=== PATIENT | male | born 1950 | race Caucasian/White ===

== ENCOUNTER 2021-06-14 07:44 | Emergency (ER) | payer MEDICARE, OTHER, SELFPAY ==
[2021-06-14 07:52] VITALS: BP 151/81; PULSE 82; RESP 19; TEMP 36.8; O2SAT 96; BMI 28.8
--- NOTE | 2021-06-14 08:03 | ED_ITS ---
HPI - Back Pain/Injury General: Chief Complaint: Back Pain/Injury Stated Complaint: LOWER BACK PAIN (4 DAYS) Time Seen by Provider: 06/14/21 07:48 History of Present Illness: HPI Narrative: Patient is a 71-year-old male comes to the ED with left lower back pain. Patient reports some mild back pain starting approximately 2 weeks ago. 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 He felt a sharp pain in his back and then had a 10 out of 10 pain for 2 days. Today patient still feels some pain in with left lumbar region. Rates the pain currently a 2 out of 10. This morning he noticed his urine was a little dark. Patient has a history of kidney stones. Denies any improving or worsening factors. Associated symptoms: Deny abdominal pain, chills, dysuria, fatigue, fever(s), hematuria, nausea or vomiting Review of Systems Const: Denies: fever(s), chills or fatigue Eyes: Denies: change in vision or eye discomfort ENMT: Denies: throat pain, odynophagia, nasal discharge or nasal congestion Card: Denies: chest pain, palpitations, edema, swelling of feet/ankles, dyspnea on exertion or orthopnea Resp: Denies: dyspnea, productive cough or non-productive cough GI: Denies: abdominal pain, nausea, vomiting, diarrhea, constipation or hematochezia : Denies: flank pain, difficulty urinating, dysuria or hematuria Musc: Reports: back pain; Denies: neck pain or extremity swelling Skin/Breast: Denies: rash or new lesions Neuro: Denies: headache(s), numbness in extremities or weakness in extremities PFSH ED PFSH: Medical History CAD (coronary artery disease) GERD (gastroesophageal reflux disease) History of [place] (myocardial infarction) Hyperlipidemia Hypertension Peripheral circulatory disorder associated with type 2 diabetes mellitus Surgical History Aortic valve replaced History of carotid angioplasty History of colonoscopy 2010 History of coronary artery bypass graft History of open heart surgery History of tonsillectomy History of umbilical hernia repair History of vasectomy Family History Father CAD (coronary artery disease) Diabetes Brother CAD (coronary artery disease) Diabetes Mother Cancer Other Hypertension Denies family history of Stroke Social History Smoking and tobacco status: never smoked Alcohol intake: never History of recent travel: No Physical Exam Const: COMMON NORMALS: no acute distress, patient oriented x3, healthy appearing and alert GENERAL APPEARANCE: cooperative and comfortable HENMT: COMMON NORMALS: normocephalic HEAD & SCALP: normocephalic MOUTH: Normal oral and palatal mucosa present THROAT: posterior oropharynx normal and uvula midline Eye: COMMON NORMALS: Equal, round and reactive pupils present PUPIL: Yes Equal, round and reactive pupils present Neck/C-Spine: COMMON NORMALS: supple GENERAL: Yes normal visual inspection Resp: COMMON NORMALS: normal respiratory effort, No retractions, No use of accessory muscles and clear to auscultation bilaterally AUSCULTATION: clear to auscultation bilaterally Cardio: COMMON NORMALS: regular rate, regular rhythm, S1 normal heart sound present, S2 normal heart sound present, No gallops present (Cardio), No clicks present (Cardio), No murmurs present (Cardio) and Peripheral pulses 2+ throughout RATE: regular rate RHYTHM: regular rhythm HEART SOUNDS: S1 normal heart sound present and S2 normal heart sound present PERIPHERAL PULSES: Peripheral pulses 2+ throughout GI: COMMON NORMALS: Normal to inspection, nondistended, normoactive bowel sounds present, Soft to palpation, non-tender and no masses PALPATION: Yes Soft to palpation : COMMON NORMALS: Yes no CVA tenderness BLADDER/KIDNEY EXAM: Yes no CVA tenderness Back/Pelvis: COMMON NORMALS: no CVA tenderness LUMBAR SPINE/LOWER BACK: Yes lumbar ROM normal, No pain with ROM, No lumbar spinal tenderness and No paraspinal muscle tenderness Extremity: COMMON NORMALS: normal to inspection Neuro: COMMON NORMALS: patient oriented x3 and moves all extremities SENSORIUM/ORIENTATION: Yes alert Skin: GENERAL SKIN EXAM: dry skin Course Vital Signs: Vital signs: Vital Signs Temperature 98.3 F 06/14/21 07:52 Pulse Rate 82 06/14/21 07:52 Respiratory Rate 19 H 06/14/21 07:52 Blood Pressure 151/81 06/14/21 07:52 Pulse Oximetry 96 06/14/21 07:52 MDM - Back Pain/Injury MDM Narrative: Medical decision making narrative: Patient is a 71-year-old male comes to the ED with left lower back pain. 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 Vitals are stable. Exam is benign. UA was clean and showed no signs of infection or blood. Patient was diagnosed with musculoskeletal back pain and discharged home with a muscle relaxer. Patient currently takes Tylenol to help with his pain and said that is good enough pain control for him. He was told to follow-up with his PCP in 7 to 10 days for reevaluation. Return to ED precautions given. Patient understood and agreed with plan. Lab Data: Attestation: I reviewed the patient's lab results. Labs: Lab Results 06/14/21 08:40 Urine Color Yellow (Yellow) Urine Appearance Clear (CLEAR) Urine pH 6.5 (5-7) Ur Specific Gravit y 1.010 (1.005-1.030) Urine Protein Neg (Negative) Urine Glucose (UA) Norm (Normal) Urine Ketones Negative (Negative) Urine Blood Neg (Negative) Urine Nitrate Negative (Negative) Urine Bilirubin Neg (Negative) Urine Urobilinogen Norm mg/dL mg/dL (Negative) Ur Leukocyte Tami ase Negative (Negative) Discharge Plan Discharge Patient Disposition: Home Clinical Impression: Musculoskeletal back pain Condition: Stable Prescriptions: New cyclobenzaprine 10 mg tablet 10 mg PO BID PRN (Reason: muscle spasm) Qty: 15 RF: 0 No Action gabapentin 100 mg capsule 100 mg PO DAILY RF: 0 rosuvastatin 40 mg tablet 40 mg PO DAILY RF: 0 clopidogrel 75 mg tablet 75 mg PO DAILY RF: 0 glipizide [Glucotrol] 10 mg tablet 10 mg PO DAILY RF: 0 diltiazem HCl [Tiadylt ER] 360 mg capsule,extended release 24 hr 360 mg PO DAILY RF: 0 valsartan 80 mg tablet 80 mg PO DAILY RF: 0 aspirin 81 mg tablet,delayed release (DR/EC) 81 mg PO DAILY RF: 0 albuterol (refill) 90 mcg/actuation aerosol inhalation RF: 0 budesonide-formoterol [Symbicort] 160-4.5 mcg/actuation HFA aerosol inhaler 2 puff inhalation BID RF: 0 ketoconazole 2 % shampoo 1 applic topical .2 x weekly Qty: 120 RF: 3 clobetasol 0.05 % solution 1 applic topical DAILY Qty: 50 RF: 2 Discharge Orders: Discharge ED (Routine); Ordered 06/14/21 Ordered By: Luis F Thomas Referrals: Keren Gomez DO [Primary Care Provider] - Discharge Diet: Regular Discharge Activity: Increase activity as tolerated Patient Instructions: Low Back Strain (ED), Musculoskeletal Pain (ED) Activity Restrictions/Additional Instructions: Follow-up with medical provider as directed in 7 to 10 days for reevaluation. Take medications as prescribed. Cyclobenzaprine is a muscle relaxer and can cause some drowsiness so take at night before going to bed. Take [id number] Tylenol for any pain. Return to the ER or your medical provider if condition worsens. Please read and understand discharge instructions. Thank you for choosing [facility] for your healthcare needs today. Please realize this is an emergency room and that we are providing you with a medical screening exam and this may not be complete and all inclusive of all the testing and or work up that you may need to determine your ailment or severity of your illness. It is very important that you follow up as instructed or that you return to the Emergency Department should you have concerns or if your condition changes or worsens in any way. Coding Level of Care Code ED Hatch Supervisor for Eileen Noel Exam Comprehensive
[2021-06-14 09:16] LABS: Add Urine Microscopic? NO; Charge for UA Resulting for Rev
[2021-06-14 09:47] LABS: Bilirubin Urine Neg (Negative); Blood Urine Neg (Negative); Glucose Urine UA Norm (Normal); Ketones Urine Negative (Negative); Leukocyte Esterase Urine Negative (Negative); Nitrate Urine Negative (Negative); Protein Urine Neg (Negative); Urine Appearance Clear (CLEAR); Urine Color Yellow (Yellow); Urobilinogen Urine Norm (Negative); pH Urine 6.5 (5-7)
== END 2021-06-14 10:06 | disposition home or self-care (01) ==
PROVIDERS: Emergency Provider Physician Assistant; PCP Family Medicine
DX: M54.89 Other dorsalgia (principal); Z79.02 Long term (current) use of antithrombotics/antiplatelets; Z79.82 Long term (current) use of aspirin; I25.10 Atherosclerotic heart disease of native coronary artery without angina pectoris; I25.2 Old myocardial infarction; E78.5 Hyperlipidemia, unspecified; I10 Essential (primary) hypertension; E11.9 Type 2 diabetes mellitus without complications; Z95.1 Presence of aortocoronary bypass graft
CPT/HCPCS: 81003; 99281

== ENCOUNTER 2021-11-13 17:40 | Emergency (ER) | payer MEDICARE, OTHER, SELFPAY ==
[2021-11-13 17:46] VITALS: BP 150/71; PULSE 78; RESP 16; TEMP 36.9; O2SAT 97; BMI 27.3
--- NOTE | 2021-11-13 18:42 | XRR_ITS ---
PROCEDURE INFORMATION: Exam: XR Chest Exam date and time: 11/13/2021 6:42 PM Age: 71 years old Clinical indication: Shortness of breath; Prior surgery; Surgery date: 6+ months; Surgery type: 3 open heart surgeries; Additional info: SOB TECHNIQUE: Imaging protocol: XR of the chest. Views: 1 view. COMPARISON: No relevant prior studies available. FINDINGS: Lungs: Unremarkable. No consolidation. Pleural spaces: Unremarkable. No pleural effusion. No pneumothorax. Heart/Mediastinum: Unremarkable. No cardiomegaly. Bones/joints: Sternotomy wires noted. Bilateral shoulder hemiarthroplasties noted. Visualized osseous structures are intact. XR/XR chest 1V portable [id number] IMPRESSION: No acute findings.
== END 2021-11-13 19:45 ==
PROVIDERS: Emergency Provider Family Medicine; PCP Family Medicine
DX: Z53.21 Procedure and treatment not carried out due to patient leaving prior to being seen by health care provider (principal)
CPT/HCPCS: 71045

== ENCOUNTER 2022-09-05 15:59 | Observation (INO) | payer MEDICARE, OTHER, SELFPAY ==
[2022-09-05] VITALS (37 sets, daily range): BP systolic 128–183; BP diastolic 67–88; PULSE 57–98; RESP 11–27; TEMP 37.1; O2SAT 89–100
--- NOTE | 2022-09-05 16:09 | ECG_ITS ---
[facility] Test Date: 2022-09-05 Pat Name: Kaz Rausch Department: Room: Gender: Male Membership Administrator: : 1950 Requested By: Derek Don Order Number: [id number] Rekha MD: Malka Pruett M.D. 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 [id number]
--- NOTE | 2022-09-05 16:10 | CTR_ITS ---
PROCEDURE INFORMATION: Exam: CTA Head With Contrast, Arteriography Exam date and time: 09/05/2022 4:20 PM Age: 72 years old Clinical indication: Stroke-like symptoms; Dizziness/giddiness TECHNIQUE: Imaging protocol: Computed tomographic angiography of the head with contrast. Exam focused on the arteries. 3D rendering (Not supervised by radiologist): MIP and/or 3D reconstructed images were created by the technologist. Radiation optimization: All CT scans at this facility use at least one of these dose optimization techniques: automated exposure control; mA and/or kV adjustment per patient size (includes targeted exams where dose is matched to clinical indication); or iterative reconstruction. Contrast material: OMNI 350; Contrast volume: 100 ml; Contrast route: INTRAVENOUS (IV); COMPARISON: CT head thrombolytic [id number] 09/05/2022 4:17 PM RADIATION DOSE METRICS: Total DLP (mGy-cm): 475.32 FINDINGS: ANTERIOR CIRCULATION: Right internal carotid artery: Calcified plaque in the right carotid siphon with mild-moderate stenosis. Right middle cerebral artery: No occlusion or significant stenosis. No aneurysm. Right anterior cerebral artery: No occlusion or significant stenosis. No aneurysm. Left internal carotid artery: Calcified plaque in the left carotid siphon with mild-moderate stenosis. Left middle cerebral artery: No occlusion or significant stenosis. No aneurysm. Left anterior cerebral artery: No occlusion or significant stenosis. No aneurysm. POSTERIOR CIRCULATION: Right vertebral artery: Calcified plaque with mild stenosis in the right vertebral artery. Left vertebral artery: No occlusion or significant stenosis. No aneurysm. Basilar artery: No occlusion or significant stenosis. No aneurysm. Right posterior cerebral artery: Moderate focal stenosis in the distal P1 segment of the right posterior cerebral artery. Left posterior cerebral artery: Mild stenosis in the P1 segment of the left posterior cerebral artery. Brain: Encephalomalacia in the left frontal lobe. Small hyperdensity along the superior margin of the encephalomalacia is unchanged and is most likely calcification. Cerebral ventricles: No ventriculomegaly. Bones/joints: Unremarkable. No acute fracture. Soft tissues: Unremarkable. PROCEDURE INFORMATION: Exam: CTA Neck With Contrast Exam date and time: 09/05/2022 4:20 PM Age: 72 years old Clinical indication: Stroke-like symptoms; Dizziness/giddiness TECHNIQUE: Imaging protocol: Computed tomographic angiography of the neck with contrast. 3D rendering (Not supervised by radiologist): MIP and/or 3D reconstructed images were created by the technologist. Radiation optimization: All CT scans at this facility use at least one of these dose optimization techniques: automated exposure control; mA and/or kV adjustment per patient size (includes targeted exams where dose is matched to clinical indication); or iterative reconstruction. Contrast material: OMNI 350; Contrast volume: 100 ml; Contrast route: INTRAVENOUS (IV); COMPARISON: CT head thrombolytic [id number] 09/05/2022 4:17 PM RADIATION DOSE METRICS: Total DLP (mGy-cm): 475.32 FINDINGS: Right common carotid artery: Calcified plaque in the distal right common carotid artery with 40% stenosis. Right internal carotid artery: Calcified plaque in the proximal right internal carotid artery with 50% stenosis. Right external carotid artery: No occlusion or stenosis of the origin. Left common carotid artery: Plaque with 30% stenosis in the distal left common carotid artery. Left internal carotid artery: No stenosis of the extracranial segment. No dissection or occlusion. Left external carotid artery: No occlusion or stenosis of the origin. Right vertebral artery: Calcified plaque with multifocal mild stenoses in the right vertebral artery. Left vertebral artery: Calcified plaque with severe stenosis at the origin and in the proximal left vertebral artery. Calcified plaque with moderate stenosis in the mid artery. Left subclavian artery: Calcified plaque with moderate stenosis in the proximal left subclavian artery. Evaluation is limited by artifact in this region. Soft tissues: Normal. No significant soft tissue swelling. Bones/joints: No acute fracture. CT/CT angio headneck* [id number] IMPRESSION: 1. Dense calcified plaque in the bilateral carotid siphons with mild-moderate stenosis. 2. Moderate focal stenosis in the distal P1 segment of the right posterior cerebral artery. 3. No large artery occlusion. IMPRESSION: 1. Calcified plaque in the proximal right internal carotid artery with 50% stenosis. 2. Calcified plaque in the distal common carotid arteries with 40% stenosis on the right and 30% stenosis on the left. 3. Calcified plaque with severe stenosis at the origin and in the proximal left vertebral artery. 4. Calcified plaque with moderate stenosis in the proximal left subclavian artery. REFERENCES: NASCET CRITERIA. The degree of stenosis in the cervical segment of the internal carotid artery is based on NASCET criteria. Normal is no stenosis. Mild is less than 50% stenosis. Moderate is 50-69% stenosis. Severe is 70% to 99% stenosis. Total occlusion is no detectable patent lumen.
--- NOTE | 2022-09-05 16:10 | CTR_ITS ---
PROCEDURE INFORMATION: Exam: CT Head Without Contrast Exam date and time: 09/05/2022 4:17 PM Age: 72 years old Clinical indication: Stroke-like symptoms; Dizziness/giddiness; Additional info: Symptoms of acute stroke TECHNIQUE: Imaging protocol: Computed tomography of the head without contrast. Radiation optimization: All CT scans at this facility use at least one of these dose optimization techniques: automated exposure control; mA and/or kV adjustment per patient size (includes targeted exams where dose is matched to clinical indication); or iterative reconstruction. Other technique: STROKE PROTOCOL was implemented. COMPARISON: No relevant prior studies available. RADIATION DOSE METRICS: Total DLP (mGy-cm): 1115.48 FINDINGS: Brain: Encephalomalacia in the left frontal lobe. There are mild periventricular and subcortical lucencies consistent with chronic microvascular ischemic changes.The clark-white differentiation is maintained. No hemorrhage. No edema. Cerebral ventricles: No ventriculomegaly. Paranasal sinuses: Visualized sinuses are unremarkable. No fluid levels. Mastoid air cells: Visualized mastoid air cells are well aerated. Orbital cavities: Bilateral cataract surgery. Bones/joints: Unremarkable. No acute fracture. Soft tissues: Unremarkable. CT/CT head thrombolytic [id number] IMPRESSION: No acute intracranial abnormality. Chronic microvascular ischemic changes. ASSESSMENT: ASPECTS ([place] Stroke Program Early CT Score) is 10.
--- NOTE | 2022-09-05 16:11 | W.ED.DIZZY ---
HPI - Dizziness General: Chief Complaint: Dizziness Stated Complaint: DIZZINESS Time Seen by Provider: 09/05/22 16:02 History of Present Illness: HPI Narrative: Patient comes in with sudden onset dizziness which she describes as room spinning, gait abnormality. States it started 30 minutes prior to arrival. Patient does have a significant history of atherosclerotic disease. States he has had an endarterectomy, cardiac stents, and a history of TIA. Associated symptoms: Denies chest pain, headache(s), nausea, palpitations or vomiting Associated neuro symptoms: Deny numbness in extremities Review of Systems Const: Denies: fever(s) or body aches Eyes: Denies: change in vision or blurry vision ENMT: Denies: throat pain or odynophagia Card: Denies: chest pain or palpitations Resp: Denies: dyspnea or productive cough GI: Denies: abdominal pain, nausea or vomiting : Denies: flank pain or dysuria Musc: Denies: neck pain or back pain Skin/Breast: Denies: rash or pruritus Neuro: Reports: dizziness; Denies: headache(s) or numbness in extremities Psych: Denies: anxiety or change in appetite Endo: Denies: polyuria or excessive sweating PFSH ED PFSH: Medical History CAD (coronary artery disease) GERD (gastroesophageal reflux disease) History of [place] (myocardial infarction) Hyperlipidemia Hypertension Peripheral circulatory disorder associated with type 2 diabetes mellitus Surgical History Aortic valve replaced History of carotid angioplasty History of colonoscopy 2010 History of coronary artery bypass graft History of open heart surgery History of tonsillectomy History of umbilical hernia repair History of vasectomy Family History Father CAD (coronary artery disease) Diabetes Brother CAD (coronary artery disease) Diabetes Mother Cancer Other Hypertension Denies family history of Stroke Social History Alcohol intake: never History of recent travel: No Physical Exam Const: COMMON NORMALS: no acute distress, patient oriented x3, healthy appearing and alert HENMT: COMMON NORMALS: normocephalic and atraumatic HEAD & SCALP: normocephalic and atraumatic Eye: COMMON NORMALS: Equal, round and reactive pupils present and EOMs intact bilaterally PUPIL: Yes Equal, round and reactive pupils present Neck/C-Spine: COMMON NORMALS: full ROM and supple Resp: COMMON NORMALS: normal respiratory effort, No retractions and No use of accessory muscles Cardio: COMMON NORMALS: regular rate and regular rhythm RATE: regular rate RHYTHM: regular rhythm GI: COMMON NORMALS: Normal to inspection, nondistended, normoactive bowel sounds present, Soft to palpation and non-tender PALPATION: Yes Soft to palpation Back/Pelvis: COMMON NORMALS: thoracic and lumbar spine normal to inspection and no thoracic nor lumbar tenderness Extremity: COMMON NORMALS: normal to inspection and full ROM Neuro: COMMON NORMALS: patient oriented x3 SENSORIUM/ORIENTATION: Yes alert OTHER: 4-5 strength in the left leg when compared to the right. He also has gait abnormality and is pulling to the side when trying to walk. Psych: COMMON NORMALS: mental status grossly normal and cooperative Skin: COMMON NORMALS: no rashes or lesions noted and no wounds GENERAL SKIN EXAM: no rashes or lesions noted Course Vital Signs: Vital signs: Vital Signs Pulse Rate 98 09/05/22 17:36 Respiratory Rate 14 09/05/22 17:36 Blood Pressure 138/79 09/05/22 17:36 Pulse Oximetry 98 09/05/22 16:04 Oxygen Delivery Me thod 09/05/22 16:04 MDM - Dizziness Medical Decision Making Patient comes in with sudden onset dizziness which she describes as room spinning, gait abnormality. States it started 30 minutes prior to arrival. Patient does have a significant history of atherosclerotic disease. States he has had an endarterectomy, cardiac stents, and a history of TIA. On physical exam his NIHSS is 0, however he has 4-5 strength in the left leg when compared to the right. He also has gait abnormality and is pulling to the side when trying to walk. We activated the stroke protocol. Will check labs, CT, consult neurology, and reassess. On reassessment I spoke with neurology about the CT results. Given the significant posterior stroke symptoms I will discussed the option of tPA with the patient. When I went back to the room and reevaluated the patient to discuss tPA his symptoms have completely resolved. His gait is normal. He is no longer dizzy. I discussed the case with the hospitalist at this point and we will admit for further work-up and treatment of a transient ischemic attack. The patient is not a tPA candidate or interventional candidate due to resolving symptoms. Lab Data 09/05/22 16:30 09/05/22 16:[address] 09/05/22 16:10 IMPRESSION: No acute intracranial abnormality. Chronic microvascular ischemic changes. ASSESSMENT: ASPECTS ([place] Stroke Program Early CT Score) is 10. Head/Neck CTA 09/05/22 16:10 IMPRESSION: 1. Dense calcified plaque in the bilateral carotid siphons with mild-moderate stenosis. 2. Moderate focal stenosis in the distal P1 segment of the right posterior cerebral artery. 3. No large artery occlusion. IMPRESSION: 1. Calcified plaque in the proximal right internal carotid artery with 50% stenosis. 2. Calcified plaque in the distal common carotid arteries with 40% stenosis on the right and 30% stenosis on the left. 3. Calcified plaque with severe stenosis at the origin and in the proximal left vertebral artery. 4. Calcified plaque with moderate stenosis in the proximal left subclavian artery. REFERENCES: NASCET CRITERIA. The degree of stenosis in the cervical segment of the internal carotid artery is based on NASCET criteria. Normal is no stenosis. Mild is less than 50% stenosis. Moderate is 50-69% stenosis. Severe is 70% to 99% stenosis. Total occlusion is no detectable patent lumen. Laboratory Results WBC 6.7 10^3/uL (4.0-10.0) 09/05/22 16: RBC 4.41 10^6/uL (4.1-5.3) 09/05/22 16:30 Hgb 12.7 g/dL (11.7-16.6) 09/05/22 16: Hct 38.7 % (42.0-52.0) L 09/05/22 16:30 MCV 87.8 fl (80-94) 09/05/22 16:30 MCH 28.8 pg (28.0-34.0) 09/05/22 16: MCHC 32.8 g/dL (30.0-36.0) 09/05/22 16: RDW 14.4 % (12.1-15.1) 09/05/22 16:30 Plt Count 217 10^3/cmm (130-400) 09/05/22 16:30 MPV 10.2 fL (7.4-10.4) 09/05/22 16:30 Neut % (Auto) 44.9 % 09/05/22 16:30 Lymph % (Auto) 37.4 % 09/05/22 16:30 [place] % (Auto) 10.5 % 09/05/22 16: Eos % (Auto) 6.0 % 09/05/22 16:30 Baso % (Auto) 0.9 % 09/05/22 16:30 Neut # (Auto) 3.01 10^3/uL (1.8-7.7) 09/05/22 16: Lymph # (Auto) 2.5 10^3/uL (0.8-4.8) 09/05/22 16:30 [place] # (Auto) 0.7 10^3/uL (0.2-0.9) 09/05/22 16: Eos # (Auto) 0.4 10^3/uL (0.0-0.8) 09/05/22 16:30 Baso # (Auto) 0.1 10^3/uL (0.0-0.1) 09/05/22 16: Nucleated RBC % (auto) 0 % 09/05/22 16: Nucleated RBCs # 0.0 /100WBC 09/05/22 16:30 PT 14.50 SECONDS (12.1-14.9) 09/05/22 16:30 INR 1.09 (0.8-1.2) 09/05/22 16:30 APTT 28.4 SECONDS (23.9-36.7) 09/05/22 16:30 Sodium 134 mmol/L (136-145) L 09/05/22 16:30 Potassium 3.8 mmol/L (3.5-5.1) 09/05/22 16:30 Chloride 101 mmol/L (98-107) 09/05/22 16:30 Carbon Dioxide 24 mmol/L (22-29) 09/05/22 16:30 Anion Gap 12.8 (5-19) 09/05/22 16:30 BUN 23 mg/dL (8-23) 09/05/22 16:30 Creatinine 0.7 mg/dL (0.7-1.2) 09/05/22 16:30 GFR Calculation 111.5 mL/min (90-130) 09/05/22 16:30 Glucose 138 mg/dL (65-115) H 09/05/22 16:30 POC Glucose 131 mg/dL (70-110) H 09/05/22 16:38 Calculated Osmolality 284 mOsm/kg (285-295) L 09/05/22 16:30 Calcium 8.5 mg/dL (8.5-10.5) 09/05/22 16:30 Total Bilirubin 0.2 mg/dL (0.15-1.2) 09/05/22 16:30 AST 17 U/L (0-40) 09/05/22 16:30 ALT 16 U/L (0-41) 09/05/22 16:30 Alkaline Phosphatase 52 U/L (40-130) 09/05/22 16:30 Total Protein 5.5 g/dL (6.6-8.7) L 09/05/22 16:30 Albumin 3.8 g/dL (3.5-5.2) 09/05/22 16:30 Globulin 1.7 g/dL (1.3-4.6) 09/05/22 16:30 Discharge Plan Discharge Patient Disposition: Admitted As Inpatient Clinical Impression: Transient ischemic attack Condition: Stable Coding Level of Care Code ED Center Medical Specialist for Sabineg Fwd Exam Comprehensive
[2022-09-05] MEDS: iohexol 350 mg/mL 500 mL Btl (per mL) IV (16:34)
[2022-09-05 16:42] LABS: Glucose Point of Care 131 mg/dL (70-110)
[2022-09-05 16:51] LABS: Basophils # 0.1 10^3/uL (0.0-0.1); Basophils % 0.9 %; Eosinophils # 0.4 10^3/uL (0.0-0.8); Hematocrit 38.7 % (42.0-52.0); Hemoglobin 12.7 g/dL (11.7-16.6); Lymphocytes # 2.5 10^3/uL (0.8-4.8); Lymphocytes % 37.4 %; Mean Corpuscular HGB Conc 32.8 g/dL (30.0-36.0); Mean Corpuscular Hemoglobin 28.8 pg (28.0-34.0); Mean Corpuscular Volume 87.8 fl (80-94); Mean Platelet Volume 10.2 fL (7.4-10.4); Monocytes # 0.7 10^3/uL (0.2-0.9); Monocytes % 10.5 %; Neutrophils # 3.01 10^3/uL (1.8-7.7); Neutrophils % 44.9 %; Nucleated Red Blood Cells % 0 %; Platelet Count 217 10^3/cmm (130-400); Red Blood Count 4.41 10^6/uL (4.1-5.3); Red Cell Distribution Width 14.4 % (12.1-15.1); White Blood Count 6.7 10^3/uL (4.0-10.0)
[2022-09-05 17:10] LABS: INR 1.09 (0.8-1.2)
[2022-09-05 17:11] LABS: Partial Thromboplastin Time 28.4 SECONDS (23.9-36.7)
[2022-09-05 17:16] LABS: Alanine Aminotransferase 16 U/L (0-41); Albumin Level 3.8 g/dL (3.5-5.2); Alkaline Phosphatase 52 U/L (40-130); Aspartate Amino Transferase 17 U/L (0-40); Blood Urea Nitrogen 23 mg/dL (8-23); Calcium 8.5 mg/dL (8.5-10.5); Carbon Dioxide 24 mmol/L (22-29); Chloride 101 mmol/L (98-107); Globulin 1.7 g/dL (1.3-4.6); Glomerular Filtration Rate 111.5 mL/min (90-130); Glucose 138 mg/dL (65-115); Osmolality Calculated 284 mOsm/kg (285-295); Sodium 134 mmol/L (136-145); Total Bilirubin 0.2 mg/dL (0.15-1.2); Total Protein 5.5 g/dL (6.6-8.7)
[2022-09-05 17:19] LABS: Anion Gap 12.8 (5-19); Potassium 3.8 mmol/L (3.5-5.1)
[2022-09-05 18:03] LABS: Add Urine Microscopic? NO; Charge for UA Resulting for Rev
[2022-09-05 18:08] LABS: Bilirubin Urine Neg (Negative); Blood Urine Neg (Negative); Glucose Urine UA Norm (Normal); Ketones Urine Negative (Negative); Leukocyte Esterase Urine Negative (Negative); Nitrate Urine Negative (Negative); Protein Urine Neg (Negative); Specific Gravity, Urine 1.005 (1.005-1.030); Sulfosalicylic Acid Urine Negative (Negative); Urine Appearance Clear (CLEAR); Urine Color Straw (Yellow); Urobilinogen Urine Norm (Negative); pH Urine 8 (5-7)
[2022-09-05 18:12] LABS: Amphetamines Screen Urine Negative (Negative); Barbiturates Screen Urine Negative (Negative); Benzodiazepines Screen Urine Negative (Negative); Cocaine Screen Urine Negative (Negative); Opiate Screen Urine Negative (Negative); PCP Screen Urine Negative (Negative); THC Screen Urine Positive (Negative)
--- NOTE | 2022-09-05 18:18 | USCV_ITS ---
Kaz Rausch Age: 72 Gender: M : 1950 Exam Date: 09/05/2022 19:04 Ordering Phys: Addy Nichols MD Technologist: Ting Carpenter [place] [facility] [place]: TIA BP: 128 / 107 HR: 77 Rhythm: Sinus Technical Quality: Adequate MEASUREMENTS (Male / Female) Normal Values 2D ECHO LV Diastolic Diameter PLAX 5.5 cm 4.2 - 5.9 / 3.9 - 5.3 cm LV Systolic Diameter PLAX 3.2 cm LV Chamber Size 3.3 cm IVS Diastolic Thickness 1.1 cm 0.6 - 1.0 / 0.6 - 0.9 cm IVS Systolic Thickness 1.7 cm LVPW Diastolic Thickness 1.5 cm 0.6 - 1.0 / 0.6 - 0.9 cm LVPW Systolic Thickness 1.7 cm RV Chamber Size 2.8 cm LVOT Diameter 2.0 cm LV Ejection Fraction 2D Teich 72.0 % LV Ejection Fraction MOD 2C 33.6 % LV Ejection Fraction 2C AL 38.2 % LA Diameter 3.4 cm LA Width 2.7 cm LA Height 4.1 cm RA Width 3.3 cm RA Height 3.6 cm Aorta at Sinotubular Diameter 3.2 cm IVC Diameter 1.7 cm M-MODE Aortic Annulus Diameter 2.1 cm LA Ao Ratio MM 1.1 DOPPLER AV Peak Velocity 395.3 cm/s LVOT Peak Velocity 91.3 cm/s AV Area Cont Eq vti 0.7 cm squared AV Area Cont Eq pk 0.8 cm squared MV Area PHT 3.6 cm squared Mitral E to A Ratio 0.8 MV E' Velocity 49.5 cm/s Mitral E to MV E' Ratio 15.1 Mitral E to LV E' Lateral Ratio 11.6 Mitral E to LV E' Septal Ratio 22.1 TR Peak Velocity 211.9 cm/s TR Peak Gradient 18.0 mmHg TR Mean Velocity 122.1 cm/s TR Mean Gradient 7.4 mmHg TR Velocity Time Integral 38.7 cm TV Peak E Velocity 103.0 cm/s Right Atrial Pressure 3.0 mmHg Pulmonary Artery Systolic Pressu 21.0 mmHg RV Acceleration Time 0.1 s RV Ejection Time 0.3 s RV AcT/ET 0.3 FINDINGS Left Ventricle Normal left ventricular size, systolic function and increased wall thickness, with no regional wall motion abnormalities. Left ventricular ejection fraction is estimated at 65 %. Moderate concentric left ventricular hypertrophy. Grade II diastolic dysfunction, moderately elevated filling pressures. Right Ventricle Normal right ventricular size and systolic function. Right ventricular systolic pressure 21 mmHg. Right Atrium Normal right atrial size. Left Atrium Mildly increased left atrial size. Mitral Valve Structurally normal mitral valve. No mitral valve stenosis. No mitral valve regurgitation. Aortic Valve Bioprosthetic aortic valve is situ. 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 DVI=0.24. No significant valvular or katlyn-valvular aortic valve regurgitation. Tricuspid Valve Structurally normal tricuspid valve. Trace tricuspid valve regurgitation. Pulmonic Valve Pulmonic valve not well visualized. Pericardium No pericardial effusion. Aorta Normal size aortic root. IVC Normal IVC dimension with >50% respiratory change of the inferior vena cava. CONCLUSIONS 1. Normal left ventricular size, systolic function and increased wall thickness, with no regional wall motion abnormalities. Left ventricular ejection fraction is estimated at 65 %. Moderate concentric left ventricular hypertrophy. Grade II diastolic dysfunction, moderately elevated filling pressures. 2. 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 DVI=0.24. No significant valvular or katlyn-valvular aortic valve regurgitation. 3. No prior similar studies to compare. Malka Pruett MD (Electronically Signed) Final Date: 06 September 2022 13:22 S
--- NOTE | 2022-09-05 18:22 | P.HP_ITS ---
Providers/Chief Complaint Primary Care Provider: Keren Gomez DO Chief Complaint: DIZZINESS History of Present Illness Kaz Rausch is a 72 year old male with past medical history of hypertension diabetes coronary artery disease status post CABG, history of peripheral artery disease, AVR, came in with chief complaint of Acute onset of spinning of the room and gait abnormality which started 30 minutes prior to arrival to the ER He was evaluated for acute CVA on arrival, neurologist at [facility] was consulted, initial plan was to administer tPA, but fortunately in the interim, symptoms had completely resolved.tPA was not administered. CT head without contrast: No acute intracranial pathology CTA head and neck: Calcified plaque with severe stenosis at the origin and in the proximal left vertebral artery. His other vitals and labs have been reviewed. Review of Systems General: Reports: 10 or more systems reviewed and unremarkable except in HPI and below Const: Denies: fever(s), chills, body aches, change in appetite or diaphoresis Card: Denies: palpitations, edema, swelling of feet/ankles, dyspnea on exertion, orthopnea or leg pain with exertion Resp: Denies: dyspnea, productive cough, wheezing or pain on inspiration GI: Denies: abdominal pain, nausea, vomiting, diarrhea or constipation : Denies: flank pain or difficulty urinating Musc: Denies: back pain, extremity pain or extremity swelling Neuro: Reports: difficulty walking; Denies: headache(s) or confusion Medications/Allergies Home Medications Medication Instructions Recorded Confirmed Last Taken Type albuterol (refill) 90 90 mcg inhalation Q6H PRN 01/19/21 09/05/22 03/06/22 History mcg/actuation aerosol inhaler Shortness Of Breath budesonide-formoterol HFA 160 2 puff inhalation BID 01/19/21 09/05/22 03/06/22 History mcg-4.5 mcg/actuation aerosol inhaler (Symbicort) clopidogrel 75 mg tablet 75 mg PO DAILY 01/19/21 09/05/22 09/05/22 History diltiazem HCl 360 mg capsule,24 360 mg PO DAILY 01/19/21 09/05/22 09/05/22 History hr,extended release (Tiadylt ER) glipizide 10 mg tablet (Glucotrol) 10 mg PO DAILY 01/19/21 09/05/22 09/05/22 History rosuvastatin 40 mg tablet 40 mg PO DAILY 01/19/21 09/05/22 09/05/22 History valsartan 80 mg tablet 80 mg PO DAILY 01/19/21 09/05/22 09/05/22 History clobetasol 0.05 % scalp solution 1 applic topical BID 2 weeks #50 mL 05/28/22 09/05/22 1 Day Ago Rx ~09/04/22 lorazepam 0.5 mg tablet 0.5 mg PO BEDTIME PRN Anxiety 09/05/22 09/05/22 1 Day Ago History ~09/04/22 Allergies Allergy/AdvReac Type Severity Reaction Status Date / Time Sulfa (Sulfonamide Allergy Mild rash Verified 05/28/22 09:00 Antibiotics) metformin Allergy ADR/ALGY-Pa Verified 09/05/22 20:08 lpitations PFSH Acute PFSH: Medical History CAD (coronary artery disease) GERD (gastroesophageal reflux disease) History of ME (myocardial infarction) Hyperlipidemia Hypertension Peripheral circulatory disorder associated with type 2 diabetes mellitus Surgical History Aortic valve replaced History of carotid angioplasty History of colonoscopy 2010 History of coronary artery bypass graft History of open heart surgery History of tonsillectomy History of umbilical hernia repair History of vasectomy Family History Father CAD (coronary artery disease) Diabetes Brother CAD (coronary artery disease) Diabetes Mother Cancer Other Hypertension Denies family history of Stroke Social History Alcohol intake: never History of recent travel: No Vitals/I&O/Wt Last Vital Signs Pulse 73 09/05/22 17:54 Resp 14 09/05/22 17:54 BP 161/80 09/05/22 17:54 Pulse Ox 96 09/05/22 17:54 O2 Del Method 09/05/22 17:54 Weight last 48 hrs Weight 77.111 kg Physical Exam Const: COMMON NORMALS: patient oriented x3 HENMT: COMMON NORMALS: normocephalic and atraumatic HEAD & SCALP: normocephalic and atraumatic EXTERNAL EAR: Yes external ears normal Chest: CHEST: Yes Symmetrical chest wall rise Resp: COMMON NORMALS: normal respiratory effort, No retractions, No use of accessory muscles and clear to auscultation bilaterally EFFORT & INSPECTION: Yes symmetric chest movement AUSCULTATION: clear to auscultation bilaterally Cardio: COMMON NORMALS: regular rate, regular rhythm, S1 normal heart sound present, S2 normal heart sound present, No gallops present (Cardio), No murmurs present (Cardio), No rub (Cardio) and Peripheral pulses 2+ throughout RATE: regular rate RHYTHM: regular rhythm HEART SOUNDS: S1 normal heart sound present and S2 normal heart sound present PERIPHERAL PULSES: Peripheral pulses 2+ throughout GI: COMMON NORMALS: Normal to inspection, nondistended, normoactive bowel sounds present, Soft to palpation, non-tender, No hepatosplenomegaly present and no masses AUSCULTATION: Yes normoactive bowel sounds PALPATION: Yes Soft to palpation and Yes No hepatosplenomegaly present RECTAL EXAM: Yes deferred Extremity: COMMON NORMALS: no clubbing, cyanosis or edema and no pedal edema Neuro: COMMON NORMALS: patient oriented x3 Data 09/05/22 16:30 09/05/22 16:30 A&P Assessment and plan (1) Transient ischemic attack: (2) Diabetes: (3) Hypertension: (4) History of coronary artery disease: (5) History of coronary artery bypass graft: (6) History of aortic valve replacement: Plan 72 year old male with past medical history of hypertension diabetes coronary artery disease status post CABG, history of peripheral artery disease, AVR, came in with chief complaint of Acute onset of spinning of the room and gait abnormality which started 30 minutes prior to arrival to the ER He was evaluated for acute CVA on arrival, neurologist at [facility] was consulted, initial plan was to administer tPA, but fortunately in the interim, symptoms had completely resolved.tPA was not administered. Currently patient is being admitted for observation for management of TIA. Assessment: TIA: Possibly involving posterior circulation Hypertension Diabetes History of peripheral artery disease History of coronary artery disease s/p CABG History of AVR Plan: CT head without contrast: No acute intracranial pathology CTA head and neck: Calcified plaque with severe stenosis at the origin and in the proximal left vertebral artery. 2D echo Follow HbA1c Lipid panel TSH Continue aspirin Plavix statin Telemetry monitoring PT OT Possibly speech evaluation CODE STATUS: Full code Attestations Medical Necessity Statement*: Patient is to be in hospital for management of TIA. Time Spent in Patient Care: Greater than 35 minutes (>than 50% of time spent in counselling and/or direct pt care on unit) . Coding Level of Care Code Acute Beverage Sales Consultant for g Fwd Exam Detailed Diagnoses Transient ischemic attack G45.9 Diabetes E11.9 Hypertension I10 History of coronary artery disease Z86.79 History of coronary artery bypass graft Z95.1 History of aortic valve replacement Z95.2
[2022-09-05] MEDS: aspirin 325 mg EC Tablet PO (18:37)
--- NOTE | 2022-09-05 20:22 | PC.NURSE ---
Patient states that he takes 0.5 mg Lorazepam at bedtime at home. Patient is asking for this. Dr. Arndt notified.
--- NOTE | 2022-09-05 20:33 | PC.NURSE ---
ADMIT NOTE Pt receive to floor from ER at 2004. Is alert & oriented. No nuero deficits note. Says the vertigo came on suddenly today but has resolved now. Denies any activity that might have cause it. Also says he had difficulty with his speech and could not get words out. Speech is clear now. glass ribbon machine operator being applied. Denies any pain. RN at bedside completing admission assessment
[2022-09-05 22:07] LABS: Glucose Point of Care 146 mg/dL (70-110)
[2022-09-05] MEDS: LORazepam 0.5 mg Tablet 0.25 MG PO (22:19)
[2022-09-06] VITALS: BP 130/67; PULSE 75; RESP 18; TEMP 36.6; O2SAT 93
[2022-09-06 04:00] VITALS: BP 129/71; PULSE 73; RESP 16; TEMP 36.7; O2SAT 95
[2022-09-06 05:00] LABS: Basophils # 0.1 10^3/uL (0.0-0.1); Eosinophils # 0.4 10^3/uL (0.0-0.8); Eosinophils % 6.2 %; Hematocrit 43.7 % (42.0-52.0); Hemoglobin 14.3 g/dL (11.7-16.6); Lymphocytes # 2.1 10^3/uL (0.8-4.8); Lymphocytes % 35.4 %; Mean Corpuscular HGB Conc 32.7 g/dL (30.0-36.0); Mean Corpuscular Hemoglobin 28.8 pg (28.0-34.0); Mean Corpuscular Volume 87.9 fl (80-94); Mean Platelet Volume 10.2 fL (7.4-10.4); Monocytes # 0.6 10^3/uL (0.2-0.9); Monocytes % 10.1 %; Neutrophils # 2.73 10^3/uL (1.8-7.7); Nucleated Red Blood Cells % 0 %; Platelet Count 232 10^3/cmm (130-400); Red Blood Count 4.97 10^6/uL (4.1-5.3); Red Cell Distribution Width 14.3 % (12.1-15.1); White Blood Count 5.8 10^3/uL (4.0-10.0)
[2022-09-06 05:07] LABS: INR 1.08 (0.8-1.2)
[2022-09-06 05:08] LABS: Partial Thromboplastin Time 28.2 SECONDS (23.9-36.7)
[2022-09-06 05:17] LABS: Chol HDL Ratio 2.98 mg/dL (1.0-5.00); Cholesterol 137 mg/dL (0-200); Estmated Average Glucose 114; HDL Cholesterol 46 mg/dL (60-100); Hemoglobin A1C 5.6 % (4.0-6.0); LDL Cholesterol Calculated 78 mg/dL (50-129); Triglycerides 65 mg/dL (0-150)
[2022-09-06 05:31] LABS: Alanine Aminotransferase 16 U/L (0-41); Albumin Level 3.9 g/dL (3.5-5.2); Alkaline Phosphatase 60 U/L (40-130); Anion Gap 12.3 (5-19); Aspartate Amino Transferase 18 U/L (0-40); Blood Urea Nitrogen 17 mg/dL (8-23); Calcium 9.3 mg/dL (8.5-10.5); Carbon Dioxide 28 mmol/L (22-29); Chloride 108 mmol/L (98-107); Globulin 2.4 g/dL (1.3-4.6); Glomerular Filtration Rate 111.5 mL/min (90-130); Glucose 96 mg/dL (65-115); Magnesium 1.8 mg/dL (1.7-2.3); Osmolality Calculated 299 mOsm/kg (285-295); Phosphorus 3.4 mg/dL (2.5-4.5); Potassium 4.3 mmol/L (3.5-5.1); Sodium 144 mmol/L (136-145); Thyroid Stimulating Hormone 2.46 uIU/mL (0.27-4.20); Total Bilirubin 0.2 mg/dL (0.15-1.2); Total Protein 6.3 g/dL (6.6-8.7)
[2022-09-06 06:00] VITALS: PULSE 74
[2022-09-06 06:24] LABS: Glucose Point of Care 90 mg/dL (70-110)
[2022-09-06 08:00] VITALS: BP 156/94; PULSE 81; RESP 16; TEMP 36.6; O2SAT 93
[2022-09-06] MEDS: clopidogrel 75 mg Tablet PO (08:49)
--- NOTE | 2022-09-06 09:51 | MR_ITS ---
WS: [id number] MRI BRAIN WITHOUT CONTRAST HISTORY: TIA COMPARISON: CT head 09/05/2022 TECHNIQUE: Diffusion imaging, multiplanar T1, T2 and FLAIR imaging obtained. No evidence for acute infarct or hemorrhage. Diffusion-weighted imaging is normal. Mild atrophy. Remote moderate-sized infarct LEFT frontal lobe. Mild small vessel ischemic disease. Ventricles and extra-axial spaces are normal. No inferior displacement of cerebellar tonsils. The sella turcica and pituitary gland are unremarkabl e. Dural venous sinuses and ely [place] demonstrate no abnormality on this unenhanced studies. Paranasal sinuses: Clear. Mastoid air cells: Normal. Calvarium and scalp: Intact. MR/MR head wo con* [id number] IMPRESSION: 1. Normal diffusion-weighted imaging. No acute infarct. 2. Remote LEFT frontal lobe infarct with encephalomalacia. 3. Mild atrophy and mild small vessel ischemic disease.
--- NOTE | 2022-09-06 10:57 | PC.CHAP ---
Pastoral Care Encounter/Spiritual Assessment Type of Contact [] Declined butadiene converter utility operator visit [] Patient/Family/Request visit [] Outpatient visit [] Follow-up visit [] Physician referral [] Code/Alert [x] Routine visit [] Staff referral [] Actively dying [] Patient sleeping [] Family support [] [] Out of room [] Palliative care [] [] Receiving care in room [] Pre-surgical visit [] Trauma [] Long length of stay [] ICU visit [] Other:x isolation Relational/Emotional Strength [] Patient feels connected with others/family/visitors/staff [] Distress [] Loneliness/isolation [] Abandonment Spirituality of Patient [] Person of Elke [] Attends Voodoo of their Elke [] Believes in Prayer [] Reads Bible or Catholic materials [] There are Spiritual issues to be addressed Roll Hauler Interventions [] Prayer [] Active listening [] Non-anxious presence [] Spiritual/emotional support [] Crisis/trauma care [] Spiritual counseling [] Bereavement support [] Provided bereavement packet [] Provided Bible/devotional materials [] Provided toy/stuffed animal, coloring book to patient or family member [] Provided Communion [] Anointing/[place] [] Salvation [] Completed spiritual assessment [] Other: Impact on Illness or Injury [] Angry [] Fearful [] Anxious [] Often cries [] Exhaustion [] Unable to work [] Unable to attend buddhism [] Unable to walk/stand [] Unable to read [] Unable to drive [] Unable to eat/drink [] Unable to sleep [] Unable to be with family [] Patient intubated [] Other: Summary Time spent with patient
[2022-09-06 11:10] LABS: Glucose Point of Care 174 mg/dL (70-110)
--- NOTE | 2022-09-06 11:44 | P.DS_ITS ---
Discharge Providers Date of Admission: 09/05/22 17:38 Date of Discharge: September 06, 2022 Attending Provider at Admission: Addy Nichols MD Attending Provider at Discharge: Marichuy Barker MD Primary Care Provider: Keren Gomez DO Diagnoses at Discharge Discharge Diagnosis (1) Transient ischemic attack: Status: Acute (2) Diabetes: Status: Acute (3) Hypertension: Status: Acute (4) History of coronary artery disease: Status: Acute (5) History of coronary artery bypass graft: Status: Acute (6) History of aortic valve replacement: Status: Acute Reason for Visit Reason for Visit: DIZZINESS Hospital Course Hospital Course Kaz Rausch is a 72 year old male with past medical history of hypertension diabetes coronary artery disease status post CABG, history of peripheral artery disease, AVR, came in with chief complaint of Acute onset of spinning of the room and gait abnormality which started 30 minutes prior to arrival to the ER. He was evaluated for acute CVA on arrival, neurologist at [facility] was consulted, initial plan was to administer tPA, but fortunately in the interim, symptoms had completely resolved.tPA was not administered. CT head without contrast: No acute intracranial pathology. CTA head and neck:?Calcified plaque with severe stenosis at the origin and in the proximal left vertebral artery. MRI was performed today which did not show any posterior circulation stroke. Echocardiogram remains pending at discharge, Patient will follow up as outpatient. He has known , does not recall last valve area however states that he is not considered a surgical candidate for future surgeries even previously due to his multivessel disease and bovine valve. HE has not has any recurrence of symptoms for over 24 hrs at this point. He is being discharged today in a stable condition. Physical Exam Narrative: General: No acute distress, AO x3 HEENT: PERRLA, pupils bilaterally equal and reactive, pallors not present Chest: Normal vesicular breath sounds, no added sounds, equal good air entry bilaterally CVS: S1-S2 regular, no murmurs, no tachycardia, no gallops, no rubs Abdomen: Soft, nontender, no organomegaly, bowel sounds present Neuro: No focal deficits, no facial deformity, AO x3, power 5/5 in all limbs Discharge Data Studies Completed and Pending Completed Studies During Hospitalization Category Date Time Status CT angio headneck* [id number] Stat Cat Scan 09/05/22 16:[address] head thrombolytic [id number] Stat Cat Scan 09/05/22 16:10 Completed MR head wo con* [id number] Routine MRI 09/06/22 09:51 Completed Pending at discharge Category Date Time Status Complete Blood Count w/Auto AM LABS Lab 09/07/22 04:00 Ordered Complete Blood Count w/Auto AM LABS Lab 09/08/22 04:00 Ordered Comprehensive Metabolic Panel AM LABS Lab 09/07/22 04:00 Ordered Comprehensive Metabolic Panel AM LABS Lab 09/08/22 04:00 Ordered Magnesium AM LABS Lab 09/07/22 04:00 Ordered Magnesium AM LABS Lab 09/08/22 04:00 Ordered Phosphorus AM LABS Lab 09/07/22 04:00 Ordered Phosphorus AM LABS Lab 09/08/22 04:00 Ordered CV. echo complete* [id number] Stat Ultrasound 09/05/22 18:18 Taken Radiology Impressions Head CT 09/05/22 16:10 IMPRESSION: No acute intracranial abnormality. Chronic microvascular ischemic changes. ASSESSMENT: ASPECTS ([place] Stroke Program Early CT Score) is 10. Head/Neck CTA 09/05/22 16:10 IMPRESSION: 1. Dense calcified plaque in the bilateral carotid siphons with mild-moderate stenosis. 2. Moderate focal stenosis in the distal P1 segment of the right posterior cerebral artery. 3. No large artery occlusion. IMPRESSION: 1. Calcified plaque in the proximal right internal carotid artery with 50% stenosis. 2. Calcified plaque in the distal common carotid arteries with 40% stenosis on the right and 30% stenosis on the left. 3. Calcified plaque with severe stenosis at the origin and in the proximal left vertebral artery. 4. Calcified plaque with moderate stenosis in the proximal left subclavian artery. REFERENCES: NASCET CRITERIA. The degree of stenosis in the cervical segment of the internal carotid artery is based on NASCET criteria. Normal is no stenosis. Mild is less than 50% stenosis. Moderate is 50-69% stenosis. Severe is 70% to 99% stenosis. Total occlusion is no detectable patent lumen. Head MRI 09/06/22 09:51 IMPRESSION: 1. Normal diffusion-weighted imaging. No acute infarct. 2. Remote LEFT frontal lobe infarct with encephalomalacia. 3. Mild atrophy and mild small vessel ischemic disease. Laboratory Results WBC 5.8 10^3/uL (4.0-10.0) 09/06/22 04:33 RBC 4.97 10^6/uL (4.1-5.3) 09/06/22 04:33 Hgb 14.3 g/dL (11.7-16.6) 09/06/22 04:33 Hct 43.7 % (42.0-52.0) 09/06/22 04:33 MCV 87.9 fl (80-94) 09/06/22 04:33 MCH 28.8 pg (28.0-34.0) 09/06/22 04:33 MCHC 32.7 g/dL (30.0-36.0) 09/06/22 04:33 RDW 14.3 % (12.1-15.1) 09/06/22 04:33 Plt Count 232 10^3/cmm (130-400) 09/06/22 04:33 MPV 10.2 fL (7.4-10.4) 09/06/22 04:33 Neut % (Auto) 47.0 % 09/06/22 04:33 Lymph % (Auto) 35.4 % 09/06/22 04:33 [place] % (Auto) 10.1 % 09/06/22 04:33 Eos % (Auto) 6.2 % 09/06/22 04:33 Baso % (Auto) 1.0 % 09/06/22 04:33 Neut # (Auto) 2.73 10^3/uL (1.8-7.7) 09/06/22 04:33 Lymph # (Auto) 2.1 10^3/uL (0.8-4.8) 09/06/22 04:33 [place] # (Auto) 0.6 10^3/uL (0.2-0.9) 09/06/22 04:33 Eos # (Auto) 0.4 10^3/uL (0.0-0.8) 09/06/22 04:33 Baso # (Auto) 0.1 10^3/uL (0.0-0.1) 09/06/22 04:33 Nucleated RBC % (auto) 0 % 09/06/22 04:33 Nucleated RBCs # 0.0 /100WBC 09/06/22 04:33 PT 14.30 SECONDS (12.1-14.9) 09/06/22 04:33 INR 1.08 (0.8-1.2) 09/06/22 04:33 APTT 28.2 SECONDS (23.9-36.7) 09/06/22 04:33 Sodium 144 mmol/L (136-145) 09/06/22 04:33 Potassium 4.3 mmol/L (3.5-5.1) 09/06/22 04:33 Chloride 108 mmol/L (98-107) H 09/06/22 04:33 Carbon Dioxide 28 mmol/L (22-29) 09/06/22 04:33 Anion Gap 12.3 (5-19) 09/06/22 04:33 BUN 17 mg/dL (8-23) 09/06/22 04:33 Creatinine 0.7 mg/dL (0.7-1.2) 09/06/22 04:33 GFR Calculation 111.5 mL/min (90-130) 09/06/22 04:33 Glucose 96 mg/dL (65-115) 09/06/22 04:33 POC Glucose 174 mg/dL (70-110) H 09/06/22 11:00 Estimat Average Glucose 114 09/06/22 04:33 Hemoglobin A1c 5.6 % (4.0-6.0) 09/06/22 04:33 Calculated Osmolality 299 mOsm/kg (285-295) H 09/06/22 04:33 Calcium 9.3 mg/dL (8.5-10.5) 09/06/22 04:33 Phosphorus 3.4 mg/dL (2.5-4.5) 09/06/22 04:33 Magnesium 1.8 mg/dL (1.7-2.3) 09/06/22 04:33 Total Bilirubin 0.2 mg/dL (0.15-1.2) 09/06/22 04:33 AST 18 U/L (0-40) 09/06/22 04:33 ALT 16 U/L (0-41) 09/06/22 04:33 Alkaline Phosphatase 60 U/L (40-130) 09/06/22 04:33 Total Protein 6.3 g/dL (6.6-8.7) L 09/06/22 04:33 Albumin 3.9 g/dL (3.5-5.2) 09/06/22 04:33 Globulin 2.4 g/dL (1.3-4.6) 09/06/22 04:33 Triglycerides 65 mg/dL (0-150) 09/06/22 04:33 Cholesterol 137 mg/dL (0-200) 09/06/22 04:33 LDL Cholesterol, Calc 78 mg/dL (50-129) 09/06/22 04:33 HDL Cholesterol 46 mg/dL (60-100) L 09/06/22 04:33 LDL/HDL Ratio 1.70 RATIO (0.00-3.22) 09/06/22 04:33 Cholesterol/HDL Ratio 2.98 mg/dL (1.0-5.00) 09/06/22 04:33 TSH 2.46 uIU/mL (0.27-4.20) 09/06/22 04:33 Urine Color Straw (Yellow) 09/05/22 17:53 Urine Appearance Clear (CLEAR) 09/05/22 17:53 Urine pH 8 (5-7) H 09/05/22 17:53 Ur Specific [place] 1.005 (1.005-1.030) 09/05/22 17:53 Urine Protein Neg (Negative) 09/05/22 17:53 Urine Glucose (UA) Norm (Normal) 09/05/22 17:53 Urine Ketones Negative (Negative) 09/05/22 17:53 Urine Blood Neg (Negative) 09/05/22 17:53 Urine Nitrate Negative (Negative) 09/05/22 17:53 Urine Bilirubin Neg (Negative) 09/05/22 17:53 Prot Sulfosalicylic Acd Negative (Negative) 09/05/22 17:53 Urine Urobilinogen Norm mg/dL (Negative) 09/05/22 17:53 Ur Leukocyte Esterase Negative (Negative) 09/05/22 17:53 Urine Opiates Screen Negative ng/mL (Negative) 09/05/22 17:53 Ur Barbiturates Screen Negative ng/mL (Negative) 09/05/22 17:53 Ur Phencyclidine Scrn Negative ng/mL (Negative) 09/05/22 17:53 Ur Amphetamines Screen Negative ng/mL (Negative) 09/05/22 17:53 U Benzodiazepines Scrn Negative ng/mL (Negative) 09/05/22 17:53 Urine Cocaine Screen Negative ng/mL (Negative) 09/05/22 17:53 U Marijuana (THC) Screen Positive ng/mL (Negative) H 09/05/22 17:53 Vitals Last Vital Signs Temp 97.9 F 09/06/22 08:00 Pulse 81 09/06/22 08:00 Resp 16 09/06/22 08:00 BP 156/94 09/06/22 08:00 Pulse Ox 93 09/06/22 08:00 O2 Del Method 09/05/22 20:05 Discharge Plan Discharge Patient Disposition: Home Condition: Stable Prescriptions: Continued rosuvastatin 40 mg tablet 40 mg PO DAILY clopidogrel 75 mg tablet 75 mg PO DAILY glipizide [Glucotrol] 10 mg tablet 10 mg PO DAILY diltiazem HCl [Tiadylt ER] 360 mg capsule,extended release 24 hr 360 mg PO DAILY valsartan 80 mg tablet 80 mg PO DAILY albuterol (refill) 90 mcg/actuation aerosol 90 mcg inhalation Q6H PRN (Reason: Shortness Of Breath) budesonide-formoterol [Symbicort] 160-4.5 mcg/actuation HFA aerosol inhaler 2 puff inhalation BID clobetasol 0.05 % solution 1 applic topical BID 14 Days Qty: 50 3RF Rx Instructions: Apply a few drops to itchy areas on scalp as needed lorazepam 0.5 mg Tablet 0.5 mg PO BEDTIME PRN (Reason: Anxiety) Discharge Orders: Discharge Order (Routine); Ordered 09/06/22 Ordered By: Marichuy Barker Referrals: Keren Gomez DO [Primary Care Provider] - Discharge Diet: Usual diet Discharge Activity: Resume usual activity Patient Instructions: Opioid Safety Discharge Attestations Time Spent in Discharge Care*: less than 30 min Quality Metrics Clinical Quality Measures [ No reported AMI, CVA or VTE this stay] Coding Level of Care Code Acute Chg FW DC note Diagnoses Transient ischemic attack G45.9 Diabetes E11.9 Hypertension I10 History of coronary artery disease Z86.79 History of coronary artery bypass graft Z95.1 History of aortic valve replacement Z95.2
[2022-09-06 12:00] VITALS: BP 145/88; PULSE 91; RESP 16; TEMP 36.9; O2SAT 95
[2022-09-06 14:01] VITALS: BP 145/88; PULSE 91; RESP 16; TEMP 36.9; O2SAT 95
== END 2022-09-06 12:22 | disposition home or self-care (01) ==
LOC: ER 17:47 → MEDSURG 19:00
PROVIDERS: Admitting Provider Internal Medicine; Emergency Provider Emergency Medicine; PCP Family Medicine; Visit Provider Student in an Organized Health Care Education/Training Program
DX: G45.9 Transient cerebral ischemic attack, unspecified (principal); E11.9 Type 2 diabetes mellitus without complications; I10 Essential (primary) hypertension; Z86.79 Personal history of other diseases of the circulatory system; Z95.1 Presence of aortocoronary bypass graft; Z95.2 Presence of prosthetic heart valve; I25.10 Atherosclerotic heart disease of native coronary artery without angina pectoris; K21.9 Gastro-esophageal reflux disease without esophagitis; I25.2 Old myocardial infarction; E78.5 Hyperlipidemia, unspecified
CPT/HCPCS: 36415; 36416; 70450; 70496; 70498; 70551; 80053; 80061; 80306; 81003; 82962; 83036; 83735; 84100; 84443; 85025; 85610; 85730; 93005; 93306; 99285; G0378; Q9967